=== PATIENT | female | born 1990 | race Caucasian/White ===

== ENCOUNTER 2022-04-17 09:07 | Outpatient (CLI) | payer OTHER, SELFPAY ==
--- NOTE | 2022-04-17 09:00 | ECG_ITS ---
Measurements Intervals [place] Rate: 91 P: 45 [place]: 142 QRS: 7 QRSD: 109 T: 29 QT: 372 QTc: 458 Interpretive Statements SINUS RHYTHM BORDERLINE T WAVE ABNORMALITY- ANTEROLATERAL LEADS BASELINE ARTIFACT- I, II, III, AVR, AVL, AVF BORDERLINE ECG Electronically Signed On 04-17-2022 9:38:40 CDT by Adriel Horan D.O.
== END 2022-04-17 09:08 | disposition home or self-care (01) ==
PROVIDERS: PCP Family Medicine; Visit Provider Obstetrics & Gynecology
DX: Z01.818 Encounter for other preprocedural examination (principal); I10 Essential (primary) hypertension; R94.31 Abnormal electrocardiogram [ECG] [EKG]
CPT/HCPCS: 93005

== ENCOUNTER 2022-04-18 01:12 | Day surgery (SDC) | payer OTHER, SELFPAY ==
[2022-04-16 14:19] VITALS: BMI 35.4
--- NOTE | 2022-04-16 14:27 | PC.NURSE ---
Report to the Outpatient Waiting Room, entrance under the green pavilion located off [facility], at time _1115_ on date _04/18/22_. OR Time: ___1315__. - You and your visitor will be asked a series of questions to screen for COVID 19 for your protection. - Only one visitor is allowed at this time. - The patient visitor is requested to leave or wait in car when not with patient. - A mask is required within the hospital. Patients may have clear liquids (water, carbonated beverages, clear teas, apple juice) until 3 hours prior to surgery with a maximum of 20 ounces. - No food from midnight until time of surgery - Infants may have breast milk until 4 hours before surgery, formula 6 hours prior to surgery. - Children will be allowed to drink immediately following surgery. If applicable, please bring a bottle or sippy cup to assist with drinking. Juice, water, soda, and popsicles are readily available. For infants on formula, please bring formula the day of surgery. Pacifiers are allowed. Take the following medications with a SIP of water the morning of surgery: __METOPROLOL Medications to discontinue per physician NONE Date to take last dose Please no make-up, nail turkish, hairspray, perfume, deodorant, or body powder the day of surgery. No jewelry (including any body piercings) or valuables the day of surgery, leave them at home. Please take a shower or bath the night before, or the morning of, surgery with an antibacterial soap. Wear comfortable, loose fitting clothing. Children are encouraged to wear pajamas. - Jewelry must be removed prior to entering the operating room. Rings and piercings that are not removed may be cut off. - The hospital will not accept responsibility for valuables. - Please leave all valuables, including medications, at home the day of surgery. If you are going home after surgery, a licensed warehouse driver must drive you home. - NO public transportation without another adult. - We recommend that an adult stay with you for 24 hours following discharge. - We also recommend that you do not drive, make important decision, drink alcoholic beverages, or take any drugs that were not prescribed by your health care provider for at least 24 hours after your discharge time. For Pediatric surgeries, we recommend two adults accompany the child home (only one inside the building at this time). Follow any additional instructions given to you from your surgeon. If you or anyone in your household have experienced Covid symptoms in the past week, please notify your surgeon or the nurse liaison at the phone number below for possible testing. Telephone instructions given to _PATIENT__and asked if any additional questions and then verbalized understanding. Patient advised to call surgeon office or pre surgery nurse liaison [phone] if any additional questions.
--- NOTE | 2022-04-17 10:50 | WPDANESEPPF ---
Anes - Initial Pre Proc Eval Procedure: Operation Date: 04/18/22 13:15 Proposed Procedures p Laparoscopic Bilateral Tubal Sterilization with Cautery - Jose Chase MD s Hysteroscopy Dilation and Curettage Mariana Endometrial Ablation - Jose Chase MD Date/Time: 04/17/22 10:50 Surgeon: Jose Chase MD Pre Op Diagnosis: desired sterilization Patient Data Age: 31 Gender: F Height: 1.55 m Weight: 85 kg Allergies Allergy/AdvReac Type Severity Reaction Status Date / Time magnesium sulfate Allergy Severe Difficulty Verified 04/16/22 14:23 Swallowing Home Medications Medication Instructions Recorded Confirmed Type metoprolol succinate 25 mg 12.5 mg PO DAILY 01/14/22 04/16/22 History tablet,extended release 24 hr phentermine 15 mg capsule 15 mg PO DAILY 01/14/22 04/16/22 History etonogestrel 68 mg subdermal 1 implant subdermal ONCE 02/18/22 04/16/22 History implant (Nexplanon) Patient hx anesthesia problems: none Family hx anesthesia problems: none Results Review: All pre-operative results and documents have been reviewed as part of the pre-operative evaluation. 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 [place] for 2-4 Surgical History Surgical History (Updated 02/18/22 @ 15:39 by HARESH Collins) H/O LEEP (02/16/13) SURENDRA III History of colposcopy with cervical biopsy 01/15/13 SURENDRA I 11/11/13 SURENDRA I History of dilation and curettage (05/01/15) menorrhagia History of eye surgery (01/29/21) History of hysteroscopy (10/14/12) MIRENA IUD REMOVAL Hx of breast reduction, elective (11/12/21) Family History Family History Other Diabetes mellitus Heart disease Social History Social History (Updated 02/18/22 @ 15:39 by HARESH Collins) Smoking status: Never smoker Alcohol intake: never Substance use: never Substance use type: does not use Living arrangements: with family Additional living arrangements comments: 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 Gender identity (if verbalized by the patient): Female Sexual Orientation (if Verbalized by the Patient): Straight or Heterosexual Anes - Eval Final PreProcedure Day of Procedure 04/17/22 10:50 Patient weight: obese Heart: regular rate and rhythm Lungs: clear to auscultation and normal air movement Airway: Mallampati scale class II Neurological: alert and oriented Last oral intake: >/= 8 hours ASA classification: II Emergent: no Anesthetic plan: proceed Anesthesia type and monitoring: general ETT Results Review: All pre-operative results and documents have been reviewed as part of the pre-operative evaluation. Informed Consent: The patient's anesthetic plan and its attendant risks and benefits were discussed with the patient/family/POA. Questions were solicited and answers provided to the satisfaction of the patient/family/POA.
[2022-04-18] VITALS (9 sets, daily range): BP systolic 111–129; BP diastolic 79–90; PULSE 58–88; RESP 12–20; TEMP 36.5–36.6; O2SAT 97–100
[2022-04-18] MEDS: LACTATED RINGERS 1,000 ML 30 ML IV CONT ×2 (12:10→14:53)
[2022-04-18] MEDS: ACETAMINOPHEN 500 MG TABLET 1000 MG PO (12:10)
[2022-04-18] MEDS: KETOROLAC 15 MG/ML VIAL (*BKC) IV PUSH (12:11)
--- NOTE | 2022-04-18 12:49 | PM.IMHP ---
H&P: HPI History of Present Illness Date/Time: 04/18/22 12:49 32-year-old female 6 para 1 3 2 4 presents for definitive treatment heavy vaginal bleeding. Cycles are irregular with Nexplanon in place and now heavy with clots cramping lasting 5-7 days. She has been on control pills which did not help the amount of bleeding that she was having and therefore presents today for endometrial ablation. 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 Surgical History Surgical History H/O LEEP (02/16/13) SURENDRA III History of colposcopy with cervical biopsy 01/15/13 SURENDRA I 11/11/13 SURENDRA I History of dilation and curettage (05/01/15) menorrhagia History of eye surgery (01/29/21) History of hysteroscopy (10/14/12) MIRENA IUD REMOVAL Hx of breast reduction, elective (11/12/21) Family History Family History Other Diabetes mellitus Heart disease Social History Social History Smoking status: Never smoker Alcohol intake: never Substance use: never Substance use type: does not use Living arrangements: with family Additional living arrangements comments: 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 Gender identity (if verbalized by the patient): Female Sexual Orientation (if Verbalized by the Patient): Straight or Heterosexual Meds Home Medications and Allergies Home Medications Medication Instructions Recorded Confirmed Type metoprolol succinate 25 mg 12.5 mg PO DAILY 01/14/22 04/18/22 History tablet,extended release 24 hr phentermine 15 mg capsule 15 mg PO DAILY 01/14/22 04/16/22 History etonogestrel 68 mg subdermal 1 implant subdermal ONCE 02/18/22 04/16/22 History implant (Nexplanon) Allergies Allergy/AdvReac Type Severity Reaction Status Date / Time magnesium sulfate Allergy Severe Difficulty Verified 04/18/22 12:22 Swallowing Vital Signs Vital Signs - 24 hr 04/18/22 12:06 Temperature 97.7 F Pulse Rate 88 Respiratory Rate 14 Blood Pressure 124/79 Pulse Oximetry 100 Oxygen Delivery Room Air Exam Const: General: cooperative, healthy appearing and comfortable Resp: Effort & Inspection: normal respiratory effort Auscultation: clear to auscultation bilaterally Cardio: Rate: regular rate Rhythm: regular rhythm GI: Inspection: normal to inspection Auscultation: normal bowel sounds : External Female Exam: normal external appearance Speculum Exam - Vagina: normal appearance of the vagina Speculum Exam - Cervix: normal appearance of the cervix Bimanual exam- vagina & uterus: normal bimanual exam Bimanual Exam- Adnexa, other: normal adnexae Assessment and Plan Assessment and plan (1) Menometrorrhagia: Code(s): N92.1 - Excessive and frequent menstruation with irregular cycle Status: Acute Assessment and Plan: Hysteroscopy D&C endometrial ablation (2) Encounter for female sterilization procedure: Code(s): Z30.2 - Encounter for sterilization Status: Acute Assessment and Plan: 67 laparoscopic bilateral tubal ligation via electrocautery
--- NOTE | 2022-04-18 12:52 | WPDHPUPDATE1 ---
History and Physical Update Update Date/Time: 04/18/22 12:52 History and Physical has been reviewed, including an updated exam of the patient. There are NO changes in the patient's condition. Risks, benefits, and alternatives have been discussed and questions answered. Patient agrees to proceed with procedure.
[2022-04-18] MEDS: ceFAZolin 2 GM/D5W 50 ML 2 GM/50 ML BAG IVPB (13:18)
--- NOTE | 2022-04-18 14:03 | P.OP_ITS ---
Procedure Note - Detailed Date of Procedure 04/18/22 Pre-op Diagnosis 1. Menometrorrhagia 2. desired sterilization Post-op Diagnosis Same Procedure Performed 1. Hysteroscopy with uterine curettings 2. Endometrial ablation 3. Laparoscopic bilateral tubal ligation via electrocautery Surgeon Jose Chase MD Anesthesia General Findings 1. Hysteroscopic exam revealed no abnormalities 2. Laparoscopic exam revealed normal tubes no ovaries with slightly enlarged globular uterus. Description of Procedure Patient prepped and draped in usual manner for this procedure. Cervical instruments were placed for uterine mobility for the laparoscopic portion of th is case. Periumbilical and suprapubic incisions were made and trocars were placed under direct visualization. Tubes were grasped bipolar in [address] on either 2 and dissected. Care was taken to not come in contact with the cautery with any other tissue then the fallopian tubes. No other problems were encountered at this point laparoscopic portion of procedure was considered terminate gas was allowed to escape and incisions approximated using 4-0 Monocryl. Hysteroscopic exam was then performed with uterine curettings removed. Mariana instrument was placed the instrument was activated and cavity assessment was performed. Once the cycle was complete the hysteroscopic exam revealed good destruction throughout the entirety of the uterine cavity. At this point procedure was considered terminated and patient was sent to recovery room in stable condition. Estimated Blood Loss 50 Drains No Packing No Pathology Yes Complications No immediate complications Condition Stable Disposition PACU [facility] Billing Surgery - Charge Forward: Surgery Billing
[2022-04-18] MEDS: fentaNYL CITRATE INJ (*CRX) 100 MCG/2 ML VIAL 25 MCG IV PUSH ×2 (14:45→15:18)
--- NOTE | 2022-04-18 14:48 | SUR.PHASEI ---
Simple mask removed at 1445.
[2022-04-18] MEDS: oxyCODONE HCL (*CRX) 5 MG TAB IR PO (15:25)
[2022-04-18] MEDS: IBUPROFEN 400 MG TABLET 800 MG PO (15:35)
== END 2022-04-18 16:18 | disposition home or self-care (01) ==
PROVIDERS: PCP Family Medicine; Visit Provider Obstetrics & Gynecology
PROC: (CPT 58671; principal; 2022-04-18 13:15)
PROC: 0U5B8ZZ Destruction of Endometrium, Via Natural or Artificial Opening Endoscopic (ICD-10-PCS; CPT 58563; 2022-04-18 13:15)
DX: N92.1 Excessive and frequent menstruation with irregular cycle (principal); Z30.2 Encounter for sterilization; B00.9 Herpesviral infection, unspecified; E66.9 Obesity, unspecified; Z68.33 Body mass index [BMI] 33.0-33.9, adult; Z85.41 Personal history of malignant neoplasm of cervix uteri
CPT/HCPCS: 58563; 58670; 88305; A9270; J0690; J1100; J1885; J2250; J2405; J2704; J2710; J3010; J7120

== ENCOUNTER 2024-06-15 09:38 | Outpatient (CLI) | payer OTHER, SELFPAY ==
[2024-06-15 09:52] LABS: Hematocrit 42.4 % (37.0-47.0); Hemoglobin 14.2 g/dL (12.0-15.0); Mean Corpuscular HGB Conc 33.5 g/dl (32-36); Mean Corpuscular Hemoglobin 30.7 pg (26-34); Mean Corpuscular Volume 91.8 fl (80-100); Platelet Count Result 276 k/mm3 (150-375); Red Blood Count 4.62 M/mm3 (4.2-5.4); Red Cell Distribution Width 12.1 % (11.5-14.5)
== END 2024-06-15 09:39 | disposition home or self-care (01) ==
LOC: ANHLAB 09:40
PROVIDERS: PCP Internal Medicine; Referring Provider Obstetrics & Gynecology; Visit Provider Anesthesiology
DX: N92.1 Excessive and frequent menstruation with irregular cycle (principal); Z01.818 Encounter for other preprocedural examination
CPT/HCPCS: 36415; 85027; 86850; 86900; 86901

== ENCOUNTER 2024-06-16 02:42 | Day surgery (SDC) | payer OTHER, SELFPAY ==
--- NOTE | 2024-06-09 16:35 | PC.NURSE ---
Report to the Outpatient Waiting Room, entrance under the green pavilion located off [facility], at time 0600 on date 06/16/24. Planned Procedure Time: 0730.? Time changes happen often and if your time is changed the preop area will call you the afternoon before. - You and your visitor will be asked to self-screen and do not enter if you have any COVID symptoms. Please call surgeon if you need to reschedule. - A mask is optional within the hospital at this time. Patients may have clear liquids (water, carbonated beverages, clear teas, apple juice) until 3 hours prior to surgery with a maximum of 20 ounces.0430 - No food from midnight until time of surgery and no smoking - Infants may have breast milk until 4 hours before surgery, formula 6 hours prior to surgery. - Children will be allowed to drink immediately following surgery.? If applicable, please bring a bottle or sippy cup to assist with drinking. Juice, water, soda, and popsicles are readily available.? For infants on formula, please bring formula the day of surgery.? Pacifiers are allowed. Take only the following medications with a SIP of water on the morning of surgery: Sumatriptan DO NOT STOP ANY OF YOUR OTHER PRESCRIPTION MEDICATIONS PRIOR TO SURGERY EXCEPT THE FOLLOWING Medications to discontinue per physician Multivitamins & Supplements Date to take last dose 06/13/24 Please no make-up, nail bahamian, hairspray, perfume, deodorant, or body powder the day of surgery.? No jewelry (including any body piercings) or valuables the day of surgery, leave them at home.? Please take a shower or bath the night before, or the morning of, surgery with an antibacterial soap.? Wear comfortable, loose fitting clothing.? Children are encouraged to wear pajamas. - Jewelry must be removed prior to entering the operating room.? Rings and piercings that are not removed may be cut off. - The hospital will not accept responsibility for valuables.? - Please leave all valuables, including medications, at home the day of surgery. If you are going home after surgery, a licensed seasonal delivery driver must drive you home.? - NO public transportation without another adult if you receive anesthesia. - We recommend that an adult stay with you for 24 hours following discharge. - We also recommend that you do not drive, make important decision, drink alcoholic beverages, or take any drugs that were not prescribed by your health care provider for at least 24 hours after your discharge time. For Pediatric surgeries, we recommend two adults accompany the child home. Follow any additional instructions given to you from your surgeon. Telephone instructions given to Patient- Hallie Bass and asked if any additional questions and then verbalized understanding. Patient advised to call surgeon office or pre surgery nurse liaison [phone] if any additional questions.
[2024-06-09 17:36] VITALS: BMI 21.2
[2024-06-16] VITALS (8 sets, daily range): BP systolic 93–116; BP diastolic 54–83; PULSE 65–115; RESP 10–20; TEMP 36.3–36.9; O2SAT 100
--- NOTE | 2024-06-16 07:11 | WPDHPUPDATE1 ---
History and Physical Update Update Date/Time: 06/16/24 07:11 History and Physical has been reviewed, including an updated exam of the patient. There are NO changes in the patient's condition. Risks, benefits, and alternatives have been discussed and questions answered. Patient agrees to proceed with procedure.
--- NOTE | 2024-06-16 07:21 | WPDANESEPPF ---
Anes - Initial Pre Proc Eval Procedure: Operation Date: 06/16/24 07:30 Proposed Procedures p Robotic Assisted Total Laparoscopic Hysterectomy - Jose Chase MD Date/Time: 06/16/24 07:21 Surgeon: Jose Chase MD Pre Op Diagnosis: menorrhagia Patient Data Age: 34 Gender: F Height: 1.54 m Weight: 50 kg Allergies Allergy/AdvReac Type Severity Reaction Status Date / Time magnesium sulfate Allergy Severe Difficulty Verified 06/15/24 08:55 Swallowing Patient hx anesthesia problems: none Family hx anesthesia problems: none Results Review: All pre-operative results and documents have been reviewed as part of the pre-operative evaluation. 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 Surgical History Surgical History H/O LEEP (02/16/13) SURENDRA III History of colposcopy with cervical biopsy 01/15/13 SURENDRA I 11/11/13 SURENDRA I History of dilation and curettage (05/01/15) menorrhagia History of eye surgery (01/29/21) History of hysteroscopy (10/14/12) MIRENA IUD REMOVAL History of hysteroscopy (04/18/22) hscope D&C/ endometrial Ablation / LTL Hx of breast reduction, elective (11/12/21) S/P gastric sleeve procedure (~05/12/23) Family History Family History Father Diabetes mellitus Heart disease Social History Social History Smoking status: Never smoker Second hand tobacco smoke exposure: No Alcohol intake: never Substance use: never Substance use type: does not use Do You Feel Safe in your Home?: Yes Lack of Transportation: No Lack of Food: Never True Current Housing: I Have Housing Concerned About Future Housing: No Difficulty Paying Gas/Electric Bills: No Difficulty Paying for Meds: No Currently Unemployed: No Education: High School Diploma/GED Difficulty w/ Childcare or Family Care: Decline to Answer Living arrangements: alone Additional living arrangements comments: Occupation/Education: occupation 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 Gender identity (if verbalized by the patient): Female Sexual Orientation (if Verbalized by the Patient): Straight or Heterosexual Spiritual care concerns: No Anes - Eval Final PreProcedure Day of Procedure 06/16/24 07:21 Patient weight: normal Heart: regular rate and rhythm Lungs: clear to auscultation Airway: Mallampati scale class II Neurological: alert and oriented Last oral intake: >/= 8 hours ASA classification: II Emergent: no Anesthetic plan: proceed Anesthesia type and monitoring: general ETT and standard monitoring Results Review: All pre-operative results and documents have been reviewed as part of the pre-operative evaluation. Informed Consent: The patient's anesthetic plan and its attendant risks and benefits were discussed with the patient/family/POA. Questions were solicited and answers provided to the satisfaction of the patient/family/POA.
[2024-06-16] MEDS: KETOROLAC 15 MG/ML VIAL (*BKC) IV PUSH (07:30)
[2024-06-16] MEDS: ACETAMINOPHEN 500 MG TABLET 1000 MG PO (07:30)
[2024-06-16] MEDS: LACTATED RINGERS 1,000 ML 30 ML IV CONT ×2 (07:30→09:04)
[2024-06-16] MEDS: ceFAZolin 2 GM/D5W 50 ML 2 GM/50 ML BAG IVPB (07:33)
[2024-06-16 07:41] LABS: BEDSIDEPREGUCG Negative
--- NOTE | 2024-06-16 09:15 | W.PM.PROC2 ---
Procedure Note - Detailed Date of Procedure 06/16/24 Pre-op Diagnosis 1. Uterine prolapse 2. Irregular vaginal bleeding 3. Post endometrial ablation syndrome 4. Dyspareunia Post-op Diagnosis Same Procedure Performed Robotic assisted total laparoscopic hysterectomy with bilateral salpingectomy (partial) Surgeon Jose Chase MD Anesthesia General Findings Mildly enlarged globular uterus. Distal segment of tubes were present bilateral. Description of Procedure Patient was prepped and draped usual manner for this procedure. Cervical instruments were placed for uterine mobility throughout the case. Abdominal trocar sites were marked and placed under direct visualization. Robotic system was attached to these trocars. Surgeon moved to the console to perform the rest of the procedure. Enlarged globular uterus was noted, and distal segments of tubes were present. These were removed without difficulty. Utero-ovarian ligaments were cauterized and cut round ligament was cauterized and cut and bladder flap was developed without difficulty. Posterior leaf of the broad ligament was then incised to skeletonize the uterine vessels. These vessels then cauterized and cut without difficulty. Posterior colpotomy incision was made and this was carried circumferentially to separate the cervix from the vagina. Once this was performed the uterus was delivered into the vagina. There was no significant bleeding and the vaginal cuff was closed using V lock suture from the right angle to the midline and from left angle midline. Irrigation was undertaken and evaluation for bleeding was undertaken and there was none. Will was placed over the vaginal incision. Gas was allowed to escape, trocars removed, incisions approximated using 4-0 Monocryl. Patient was then sent to recovery room in stable condition. Estimated Blood Loss 100 Drains No Packing No Pathology Yes Complications No immediate complications Condition Stable Disposition PACU [facility] Billing Surgery - Charge Forward: Surgery Billing
[2024-06-16] MEDS: fentaNYL CITRATE INJ (*CRX) 100 MCG/2 ML VIAL 25 MCG IV PUSH ×2 (09:28→09:37)
[2024-06-16] MEDS: SIMETHICONE 80 MG TAB.CHEW PO (10:51)
[2024-06-16] MEDS: DEXTROSE 5%/0.45% SOD CHL 1,000 ML 125 ML IV CONT (10:52)
[2024-06-16] MEDS: IBUPROFEN 600 MG TABLET PO (12:43)
[2024-06-16] MEDS: HYDROcodone/acetaminophen (*CRX) 10-325 MG TABLET 1 TAB PO ×2 (12:43→15:37)
[2024-06-16] MEDS: KETOROLAC 30 MG/ML VIAL (*BKC) IV PUSH (18:51)
[2024-06-16] MEDS: HYDROcodone/acetaminophen (*CRX) 5-325 MG TABLET 1 TAB PO (18:51)
[2024-06-17 04:00] VITALS: BP 94/62; PULSE 64; RESP 20; TEMP 36.8; O2SAT 95
[2024-06-17 04:38] LABS: Basophils Percent Auto 0.2 % (0.2-1.2); Eosinophils Absolute Auto 0.1 K/mm3 (0-0.3); Eosinophils Percent Auto 1.1 % (0-4.4); Hematocrit 36.3 % (37.0-47.0); Immature Granulocyte Absolute 0.02 K/mm3 (0.00-0.031); Immature Granulocyte Percent A 0.2 % (0-0.5); Lymphocytes Absolute Auto 2.56 K/mm3 (0.9-3.2); Lymphocytes Percent Auto 30.8 % (18.3-44.2); Mean Corpuscular HGB Conc 33.1 g/dl (32-36); Mean Corpuscular Hemoglobin 30.4 pg (26-34); Mean Corpuscular Volume 91.9 fl (80-100); Mean Platelet Volume 8.9 fl (7.4-10.4); Monocytes Absolute Auto 0.5 K/mm3 (0.1-0.6); Monocytes Percent Auto 5.9 % (2.6-8.5); Neutrophils Absolute Auto 5.1 K/mm3 (1.3-6.7); Neutrophils Percent Auto 61.8 % (45.5-73.1); Platelet Count Result 248 k/mm3 (150-375); Red Blood Count 3.95 M/mm3 (4.2-5.4); White Blood Count 8.3 K/mm3 (4.5-10.0)
[2024-06-17] MEDS: HYDROcodone/acetaminophen (*CRX) 10-325 MG TABLET 1 TAB PO (08:13)
[2024-06-17] MEDS: SIMETHICONE 80 MG TAB.CHEW PO (08:14)
[2024-06-17 08:25] VITALS: BP 91/54; PULSE 79; RESP 16; TEMP 37.3; O2SAT 99
--- NOTE | 2024-06-17 10:37 | P.PNAN_ITS ---
Anes - Prog Note Post-Op Date/Time: 06/17/24 10:37 Cardiovascular status: normal Respiratory status: normal Airway patency: baseline Mental status: baseline Post-Op hydration status: normal Vital Signs: Last Vital Signs Temp 37.3 C 06/17/24 08:25 Pulse 79 06/17/24 08:25 Resp 16 06/17/24 08:25 BP 91/54 L 06/17/24 08:25 Pulse Ox 99 06/17/24 08:25 O2 Del Method Room Air 06/16/24 19:27 O2 Flow Rate 8 06/16/24 09:15 Pain Score (VAS): 12/19 I/O: Intake & Output 06/16/24 06/17/24 06/17/24 23:59 07:59 15:59 Intake Total 240 Balance 240 Laboratory Tests 06/17/24 04:14 06/17/24 04:14 WBC 8.3 RBC 3.95 L Hgb 12.0 Hct 36.3 L MCV 91.9 MCH 30.4 MCHC 33.1 RDW 12.0 Plt Count 248 MPV 8.9 Immature Gran % (Auto) 0.2 Neut % (Auto) 61.8 Lymph % (Auto) 30.8 [place] % (Auto) 5.9 Eos % (Auto) 1.1 Baso % (Auto) 0.2 Lymph # (Auto) 2.56 [place] # (Auto) 0.5 Eos # (Auto) 0.1 Baso # (Auto) 0.0 Abs Immat Gran (auto) 0.02 Absolute Neuts (auto) 5.1 Absolute Nucleated RBC 0.000 Nucleated RBC % 0.0 Post-procedural complaints: none Patient Feedback: Patient satisfied with anesthetic care.
== END 2024-06-17 11:10 | disposition home or self-care (01) ==
LOC: ANHSURGERY 06:28 → ANHOB2 12:51
PROVIDERS: PCP Physician Assistant Medical; Visit Provider Obstetrics & Gynecology
PROC: (CPT 58571; principal; 2024-06-16 07:30)
DX: N81.4 Uterovaginal prolapse, unspecified (principal); N72 Inflammatory disease of cervix uteri; N83.8 Other noninflammatory disorders of ovary, fallopian tube and broad ligament; N93.9 Abnormal uterine and vaginal bleeding, unspecified; N99.85 Post endometrial ablation syndrome; N94.10 Unspecified dyspareunia; Z98.84 Bariatric surgery status
CPT/HCPCS: 58571; S2900; 36415; 85025; 88307; 99199; A9270; J0690; J1100; J1170; J1885; J2250; J2405; J2704; J3010; J7030; J7120

== ENCOUNTER 2025-06-30 12:31 | Outpatient (CLI) | payer OTHER, SELFPAY ==
--- OUTSIDE RECORDS SUMMARY | 2025-06-30 12:36 | XMS_ITS | Clinical Summary ---
Author Organization [facility] [employer] Address [address] [place] [address] Care Team Providers Care Records Supervisor Name Role Phone Kyler Orr MD Primary Care Provider [phone] Source Comments [facility] [employer],non-owned Affiliates and Associated Physician Practices is amultiple site organization consisting of ambulatory clinics and hospital sitesin [place], [place], [place] and [place]. This disclosure is being madepursuant to the Care Everywhere program and may not contain all information available regarding this patient. Last updated 18.[facility] [employer] Allergies Active Allergy Reactions Criticality Noted Date Comments Magnesium Shortness of Breath High 09/11/2021 Medications * Be aware that medications may not be up to date on this document. Alwaysverify current medications with the patient. multivitamin daily tablet Take 1 (one) tablet by mouth daily with food Active folic acid (Folvite) 1 MG tablet TAKE 1 TABLET BY MOUTH EVERY DAY FOR 30 DAYS 4 Active SUMAtriptan (Imitrex) 50 MG tablet Take 1 (one) tablet by mouth once daily as needed 4 Active CALCIUM CITRATE 600 mg TABS tablet Take 600 (six hundred) mg by mouth 2 times daily Active cycloSPORINE (Restasis) 0.05 % ophthalmic suspension Instill 1 (one) drop into both eyes 2 times daily 5 Active vitamin D, ergocalciferol, (Drisdol) 1.25 MG (68543 UT) capsuleIndicati ons:Vitamin D Deficiency Take 1 (one) capsule by mouth every 7 days (once a week) Reasons: Vitamin D Deficiency 4 capsule 3 5 Active Active Problems Problem Noted Date Diagnosed Date Morbid obesity 06/08/2023 Skin infection 11/27/2021 Migraine 11/27/2021 S/P bilateral breast reduction 11/20/2021 Macromastia 11/06/2021 Essential hypertension 11/06/2021 Mild asthma without complication 11/06/2021 Depression 11/06/2021 Anxiety 11/06/2021 Chronic midline back pain 11/06/2021 Sequential screen 06/16/2014 Encounter for supervision of other normal pregna ncy 06/16/2014 Overview (08/19/2015): Recurrent loss, an tepartum condition or complication 06/16/2014 Encounters Date Type Department Care Team Description 06/29/2025 Orders Only [facility] Weight [facility] Services [address] [place] [address] Lissette Allen APRN-CNP Status post laparoscopic sleeve gastrectomy 05/01/2025 Results Follow-Up [facility] [address] [place] [address] Brenda Gamez MD 04/25/2025 9:00 AM CDT Office Visit [facility] [address] [place] [address] Lilli Matthews APRN-CNP Cox, Rachel, APRN-CNP Status post laparoscopic sleeve gastrectomy (Primary Dx); Vitamin D deficiency 04/25/2025 8:30 AM CDT Office Visit [facility] [address] [place] [address] Lilli Matthews APRN-CNP Status post laparoscopic sleeve gastrectomy (Primary Dx) 04/25/2025 8:00 AM CDT - 04/25/2025 11:59 PM CDT Hospital Encounter [facility] [address] [place] [address] Lucie Cleary, SUPERVISOR SCREEN PRINTING-Brenda Dill MD Discharge Disposition: Home or Self Care from Last 3 Months Immunizations Immunization Administration Dates Next Due Covfelicitas Hines primary monoval ent 12+ yr 0.3mL Purple cap 08/08/2021,07/18/2021 Family History Medical History Relation Name Comments Cancer - Other Father Diabetes Father Diabetes - Type 2 Father Hypertension Father Heart Failure Maternal Grandmother Heart Failure Mother Diabetes - Type 2 Paternal Grandmother Relation Name Status Comments Father Maternal Grandmother Mother Paternal Grandmother Social History Tobacco Use Types Packs/Day Years Used Date Smoking Tobacco: Never Smokeless Tobacco: Never Tobacco Cessation:Counseling Given: Not Answered Alcohol Use Standard Drinks/Week Comments Never 0 (1 standard drink = 0.6 oz pur e alcohol) AUDIT-C Answer Date Recorded Q1: How often do you have a drink containing alcohol? Never 06/08/2023 Q2: How many drinks containi ng alcohol do you have on a typical day when you are drinking? Patient does not drink Q3: How often do you have si x or more drinks on one occasion? Never 06/08/2023 Overall Financial Resource Strain (CARDIA) Answe r Date Recorded How hard is it for you to pa y for the very basics like food, housing, medical care, and heating? Not hard at all 06/08/2023 PHQ-2 Answer Date Recorded Patient Health Questionnaire-2 Score 0 04/25/2025 [facility] - Occupational Stress Questionnaire Answer Date Recorded Do you feel stress - tense, restless, nervous, or anxious, or unable to sleep at night because your mind is troubled all the time - these days? Not at all 06/08/2023 Hunger Vital Sign Answer Date Recorded Within the past 12 months, y ou worried that your food would run out before you got the money to buy more. Never true 06/08/20 23 Within the past 12 months, t he food you bought just didn't last and you didn't have money to get more. Never true 06/08/2023 PRAPARE - Transportation Answer Date Re corded In the past 12 months, has l ack of transportation kept you from medical appointments or from getting medications? No 05/13 In the past 12 months, has l ack of transportation kept you from meetings, work, or from getting things needed for daily living? No 06/08/2023 Housing Stability Vital Sign Answer Augustine e Recorded In the last 12 months, was t here a time when you were not able to pay the mortgage or rent on time? No 06/08/2023 In the last 12 months, how many places have you lived? 1 06/08/2023 In the last 12 months, was t here a time when you did not have a steady place to sleep or slept in a custodial (including now)? 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 Gender Identity Not on file Sexual Orientation Not on file Last Filed Vital Signs Vital Sign Reading Time Taken Comments Blood Pressure 82/60 04/25/2025 8:46 AM CDT Pulse 85 04/25/2025 8:43 AM CDT Temperature 36.7 C (98.1 F) 04/25/2025 8:43 AM CDT Respiratory Rate 18 04/25/2025 8:43 AM CDT Oxygen Saturation 99% 04/25/2025 8:43 AM CDT Inhaled Oxygen Concentration - - Weight 48.8 kg (107 lb 8 oz) 04/25/2025 8:43 AM CDT Height 153.7 cm (5' 0.5) 04/25/2025 8:43 AM CDT Body Mass Index 20.65 04/25/2025 8:43 AM CDT Plan of Treatment Upcoming Encounters Date Type Department Care Team (Late st Contact Info) Description 06/13/2026 11:00 AM CDT Office Visit [facility] Weight Management Services [address] [place] [phone] Lilli Matthews, SUPERVISOR SCREEN PRINTING-WEIGHT YARDAGE CHECKER [address] [place], [place] [phone] 06/13/2026 11:30 AM CDT Clinical Support [facility] [address] [place] [phone] Health Maintenance Due Date Last Done Comments HIV SCREENING 2005 HEPATITIS C SCREENING 04/13/2008 DTAP/TDAP/TD VACCINES (1 - Tdap) 2009 HEPATITIS B VACCINE (1 of 3 - 19+ 3-dose series) 2009 PNEUMOCOCCAL VACCINE (1 of 2 - PCV) 2009 HPV VACCINE (1 - 3-dose SCDM series) 2017 COVID-19 VACCINE (4 - 2024-2 6 season) 2025 03/23/2022, 08/08/2021, 07/18/2021 INFLUENZA VACCINE (#1) 2025 ZOSTER VACCINE (1 of 2) 2040 DEPRESSION SCREENING Completed 04/25/2025, 12/11/2023 HIB VACCINE Aged Out No longer eligi ble based on patient's age to complete this topic MENINGOCOCCAL (Group B) VACCINE SHARED DECISION-MAKING Aged Out No longer eligible based on patient's age to complete this topic MENINGOCOCCAL GROUPS A/C/Y/W VACCINE Aged Out No longer eligible b ased on patient's age to complete this topic Medical Devices Implanted Type Area Kiln Cleaner Device Identifier Shelf Expiration Date Model / Serial / Lot Kit Tissue Clsr Duo Tssl 1 Prefl Syr - [id number] Implanted:Qty : 1 on 06/08/2023 by Brenda Gamez MD at [facility] N/A: Abdomen [employer] 03/11/2025 [id number] / [id number] / [id number] Procedures Procedure Name Priority Date/Time Associated Diagnosis Comments VITAMIN D 25-HYDROXY Routine 04/25/2025 8:06 AM CDT Vitamin D deficiency FOLATE Routine 04/25/2025 8:06 AM CDT Folate deficiency from Last 3 Months Results * (ABNORMAL) VITAMIN D 25-HYDROXY (04/25/2025 8:06 AM CDT) [facility] Vitamin D, 25 Hydroxy 28.2(L) 30 - 80 ng/mL 04/25/2025 9:14 AM CDT [facility] Blood BLOOD SPECIMEN / Unknown Lab Venipuncture / Unknown 04/25/2025 8:06 AM CDT 04/25/2025 8:32 AM CDT Narrative [facility] - 04/25/2025 9:14 AM CDT Reference Values: The recommendation for 25-Hydroxy Vitamin D clinical decision points are as follows: Deficient < 20.0 ng/mL Insufficient 20.0-29.9 ng/mL Sufficient 30.0-100.0 ng/mL Potential Toxicity >100 ng/mL Reference: The Endocrine Society Clinical Practice Guidelines. 2011 If the 25-Hydroxy Vitamin D results are inconsistent with clinical evidence, it is recommended that follow-up testing using a method such as LC-MS/MS be performed to confirm the result. Lucie Cleary [facility] - CHEMISTRY O RDERABLES Final Result Performing Organization Address City/[facility] Co de Phone Number [facility] [address] * FOLATE (04/25/2025 8:06 AM CDT) [facility] Folate >20.0 7.0 - 31.4 ng/mL 04/25/2025 10:09 AM CDT [facility] Blood BLOOD SPECIMEN / Unknown Lab Venipuncture / Unknown 04/25/2025 8:06 AM CDT 04/25/2025 8:33 AM CDT Lucie Cleary [facility] - CHEMISTRY O RDERABLES Final Result Performing Organization Address City/[facility] Co de Phone Number [facility] [address] from Last 3 Months Insurance [facility] Care Address: [address] [address] SELF PAY NO INSURANCE Member Subscriber Plan / Payer (Ef fective for All Dates) Name:Estrella Bass Member ID:Not on file Relation to Subscriber:Not on file Name:ESTRELLA BASS Subscriber ID:Not on file (Home) Address: [address] [place] [address] Payer ID:Not on file Group ID:Not on file Type:Self Pay Address: [place], [place] [facility] MEDICAID - [place] Advance Directives * Full Code (Latest Code Status on File) Date Activated Date Inactivated Comments 06/08/2023 10:42 AM 06/09/2023 3:38 PM Care Teams Records Supervisor Relationship Specialty Start Date End Date Kyler Orr MD [address] [place] [phone] PCP - General Internal Medicine 11/06/21
--- OUTSIDE RECORDS SUMMARY | 2025-06-30 12:36 | XMS_ITS | Clinical Summary ---
Author Organization [facility] Address [address] [place] [address] Care Team Providers Care Assistant Real Estate Manager Name Role Phone Kyler Orr MD Primary Care Provider [phone] Allergies Active Allergy Reactions Criticality Noted Date Comments Magnesium Sulfate (Bulk) Fatigue,Nausea & Vomiting,Shortness of breath High 02/11/2023 Medications cholecalciferol (VITAMIN D-3) 50,000 unit capsule TAKE 1 CAPSULE BY MOUTH EVERY WEEK DIRECTED 01/31/2023 Active cloNIDine (CATAPRES) 0.1 mg tablet 02/08/2023 Active DULoxetine 40 mg capsule,delayed release(DR/EC) Take 1 capsule by mouth every morning 01/07/2023 Active metoprolol XL (TOPROL-XL) 25 mg extended release tablet 02/08/2023 Acti ve naltrexone (DEPADE) 50 mg tablet Take 1 tablet (50 mg total) by mouth daily 01/09/2023 Active Active Problems Problem Noted Date Diagnosed Date Obstructive sleep apnea 04/29/2023 Hypersomnia 02/11/2023 Nonsmoker 02/11/2023 Psychophysiological insomnia 02/11/2023 Family history of sleep apnea 02/11/2023 BMI 37.0-37.9, adult 02/11/2023 Family History Medical History Relation Name Comments Cancer Father Diabetes Father Heart disease Mother Relation Name Status Comments Father Mother Social History Tobacco Use Types Packs/Day Years Used Date Smoking Tobacco: Never Passive Smoke Exposure: Never Smokeless Tobacco: Never Tobacco Cessation:Counseling Given: Not Answered AUDIT-C Answer Date Recorded Frequency of Alcohol Consumption Not on file 02/11/2023 Q2: How many drinks containi ng alcohol do you have on a typical day when you are drinking? Patient does not drink Frequency of Binge Drinking Not on file 12/2022 Personal Safety Answer Date Recorded Getting School Help Needed Not on file 12/12 Comments Unknown Sex and Gender Information Value Date Recorded Sex Assigned at Not on file Legal Sex Female 1:19 PM CDT Gender Identity Not on file Sexual Orientation Not on file Obstetrics History Last Filed Vital Signs Vital Sign Reading Time Taken Comments Blood Pressure 118/70 04/29/2023 10:08 AM CDT Pulse 79 04/29/2023 10:08 AM CDT Temperature 36.5 C (97.7 F) 04/29/2023 10:08 AM CDT Respiratory Rate 18 04/29/2023 10:08 AM CDT Oxygen Saturation 99% 04/29/2023 10:08 AM CDT Inhaled Oxygen Concentration - - Weight 87.1 kg (192 lb) 04/29/2023 10:08 AM CDT Height 152.4 cm (5') 04/29/2023 10:08 AM CDT Body Mass Index 37.5 04/29/2023 10:08 AM CDT Plan of Treatment Health Maintenance Due Date Last Done Comments Cervical Cancer Screening 1990 Depression Screening 1990 Hepatitis C Screening 1990 Varicella Vaccines (1 of 2 - 13+ 2-dose series) 2003 Hepatitis B Screening 2008 Regular Well Visit/Exam 18-64 2008 HPV Vaccines (1 - 3-dose SCD M series) 2017 Covid-19 Vaccine (4 - 2024-2 6 season) 2025 03/23/2022, 08/08/2021, 07/18/2021 Influenza Vaccine (#1) 2025 05/23/2024 DTaP/Tdap/Td Vaccine (4 - Td or Tdap) 09/27/2026 09/27/2016, 12/05/2014, 12/29/1994 Pneumococcal vaccine <65 Aged Out No longer eligible based on patient's age to complete this topic Insurance [facility] Care Teams Assistant Real Estate Manager Relationship Specialty Start Date End Date Kyler Orr MD [address] [place] [id number] PCP - General Internal Medicine 05/02/24
--- OUTSIDE RECORDS SUMMARY | 2025-06-30 12:36 | XMS_ITS | Encounter Summary ---
Author Organization [facility] Address [address] [place] [address] Care Team Providers Care Electronic Prepress Technician Name Role Phone Kyler Orr MD Primary Care Provider [phone] Encounter Details Date Type Department Care Team (Late st Contact Info) Description 06/29/2025 Orders Only [facility] [address] [place] [phone] Lissette Allen, BURLING AND JOINING SUPERVISOR-CPAS [address] [place] [address] Status post laparoscopic sleeve gastrectomy Social History Tobacco Use Types Packs/Day Years Used Date Smoking Tobacco: Never Smokeless Tobacco: Never Alcohol Use Standard Drinks/Week Comments Never 0 [...] Recorded Patient Health Questionnaire-2 Score 0 04/25/2025 [facility] - Occupational Stress Questionnaire Answer Date Recorded [...] place to sleep or slept in a alf (including now)? 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 Answer Date of Assessment Author No 06/09/2023 1:58 PM Calli Narvaez RN * Is person blind or have serious difficulty seeing? Answer Date of Assessment Author No 06/09/2023 1:58 PM Calli aNrvaez RN * Does person have serious difficulty walking/climbing stairs? Answer Date of Assessment Author No 06/09/2023 1:58 PM Calli Narvaez RN * Does person have difficulty dressing/bathing? Answer Date of Assessment Author No 06/09/2023 1:58 PM CDT Calli Yates RN * Does person have difficulty doing errands alone? Answer Date of Assessment Author No 06/09/2023 1:58 PM CDT Calli Yates RN documented as of this encounter Mental Status * Does person have difficulty concentrating/remembering/making decisions? Answer Entry Date Author No 06/09/2023 1:58 PM CDT Calli Yates RN documented in this encounter Plan of Treatment Upcoming Encounters Date Type Department Care Team (Late st Contact Info) Description 06/13/2026 11:00 AM CDT Office Visit [facility] [address] [place] [address] Lilli Matthews, BURLING AND JOINING SUPERVISOR-CPAS [address] [place], [place] [address] 06/13/2026 11:30 AM CDT Clinical Support [facility] [address] [place] [address] documented as of this encounter Visit Diagnoses Diagnosis Status post laparoscopic sleeve gastrectomy documented in this encounter Care Teams Electronic Prepress Technician Relationship Specialty Start Date End Date Kyler Orr MD [address] [place] [address] PCP - General Internal Medicine 11/06/21 documented as of this encounter
--- OUTSIDE RECORDS SUMMARY | 2025-06-30 12:36 | XMS_ITS | Clinical Summary ---
Author Organization [facility] Address [address] [place] [address] Care Team Providers Care Sales And Distribution Clerk Name Role Phone Unavailable Primary Care Provider Unavailabl e Social History Tobacco Use Types Packs/Day Years Used Date Smoking Tobacco: Never Assessed Comments Unknown Sex and Gender Information Value Date Recorded Sex Assigned at Not on file Legal Sex Female 1:06 PM CDT Gender Identity Not on file Sexual Orientation Not on file Plan of Treatment Health Maintenance Due Date Last Done Comments Cervical Cancer Screening Pa p Smear (Age 30 to 64) Every 3 Years 1990 Annual Physical 1993 Hepatitis C 2008 DTaP, Tdap and Td Vaccines ( 1 - Tdap) 2009 Hepatitis B Vaccines (1 of 3 - 19+ 3-dose series) 2009 HPV Vaccines (1 - 3-dose SCD M series) 2017 Cervical Cancer Screening Pa p with HPV Testing (Age 30 to 64) Every 5 Years 2020 Cervical Cancer Screening with HPV 2020 COVID-19 Vaccine (2023-2 5 season) 2025 Meningococcal B Vaccine Aged Out No l onger eligible based on patient's age to complete this topic Meningococcal Vaccine Aged Out No emil danielle eligible based on patient's age to complete this topic Pneumococcal Vaccine: Pediat rics (0 to 5 Years) and At-Risk Patients (6 to 49 Years) Aged Out No longer eligible b ased on patient's age to complete this topic RSV Immunizations Under 20 Months Aged Out No longer eligible based on patient's age to complete this topic Insurance [employer]
--- NOTE | 2025-07-03 10:23 | WPDNEUROLOGY ---
Neurology EEG Report General Information Date of Study: 06/30/25 TEST EEG DIAGNOSIS Disorientation CONDITION OF RECORDING awake, drowsiness and asleep. EEG NUMBER [id number] CLINICAL HISTORY 35 years old female experiencing seizure-like spells. Patient states that she is experiencing an aura of getting hot. She then gets dizzy, nauseous, develops headache and then blacks out. She stays I just do not feel myself and it lasts for 10 to 15 minutes. These happen 3 to 4 times a year. On occasion she was driving and she had a spell described above to where she had to cloth covered helmet puller, get out of her car, and sit in the grass. She then experienced her hands and fingers turning inward and legs got so staff could not move. She was also talking funny that is slurred words. These spells started 6 months after her gastric sleeve. EEG DESCRIPTION Diffuse low-voltage 15 to 21 hertz per 2nd beta activity seen admixed with multiple eye movement artifacts. Hyperventilation produced normal and symmetrical buildup of the background rhythm. Bilateral symmetrical sleep activity is noted with low-voltage beta activity and 6 to 7 hertz per 2nd theta activity developing into bilateral symmetrical sleep spindles. Non paroxysmal. Nonfocal. Nonlateralizing. Photic stimulation produced normal driving. IMPRESSION No significant abnormalities noted during wakefulness, drowsiness and sleep . clinical correlation recommended as a normal EEG does not rule out the possibility of seizures.
== END 2025-06-30 12:32 | disposition home or self-care (01) ==
LOC: ANHNEURO 12:33
PROVIDERS: PCP Physician Assistant Medical; Visit Provider Physician Assistant Medical
DX: R41.0 Disorientation, unspecified (principal)
CPT/HCPCS: 95816

== ENCOUNTER 2025-08-24 08:40 | Emergency (ER) | payer OTHER, SELFPAY ==
--- NOTE | ~2025-08-24 | CT_ITS ---
EXAMINATION: CT cervical spine wo con COMPARISON: None HISTORY: neck pain X 3 days, no acute injury TECHNIQUE: Axial images were obtained through the spine without IV contrast. Coronal, sagittal reconstruction images were obtained from the axial views. CT scan performed using dose optimization techniques including the following automated exposure control; adjustment of mA and/or kV; use of iterative reconstruction technique. Automatic exposure control was used to reduce radiation dose. Permanent radiation dose record is archived to PACS. FINDINGS: The vertebral heights are intact. No fracture or subluxation. The disc heights are intact. The soft tissues demonstrate bilateral thyroid nodules, outpatient ultrasound is recommended. Impression: No acute abnormality. Reviewed, dictated and finalized at location [facility] Impression: No acute abnormality.
--- OUTSIDE RECORDS SUMMARY | 2025-08-24 08:48 | XMS_ITS | Clinical Summary ---
Author Organization [facility] Address [address] [place], [place] [id number] Care Team Providers Care Manager Agency Name Role Phone Unavailable Primary Care Provider [...] Cancer Screening with HPV 2020 COVID-19 Vaccine (2024-2 6 season) 2025 Influenza Adult (#1) 2025 Hepatitis A Vaccines Aged Out No long er eligible based on patient's age to complete this topic Meningococcal B Vaccine Aged Out No l [...] patient's age to complete this topic Insurance [place] MEDICA[employer]
--- OUTSIDE RECORDS SUMMARY | 2025-08-24 08:48 | XMS_ITS | Clinical Summary ---
Author Organization [facility] Address [address] [place] [address] Care Team Providers Care Director Business Name Role Phone Kyler Orr MD Primary Care Provider [phone] Allergies Active Allergy Reactions Criticality Noted Date [...] patient's age to complete this topic Insurance [facility] Care Teams Director Business Relationship Specialty Start Date End Date Kyler Orr MD [address] [place] [id number] PCP - General Internal Medicine 05/02/24
[2025-08-24 08:58] VITALS: BP 114/63; PULSE 100; RESP 15; TEMP 36.7; O2SAT 98
--- NOTE | 2025-08-24 09:13 | ED.NECK ---
HPI - Neck Pain/Injury General Chief Complaint: Neck Pain/Injury Stated Complaint: neck pain Time Seen by Provider: 08/24/25 09:05 Source: patient Mode of arrival: ambulatory Limitations: no limitations History of Present Illness HPI Narrative: This is a 35-year-old female that presents to the emergency department for neck pain. No recent injury or trauma. Reports pain is worse with movement. She has been taking Tylenol and ibuprofen with little relief. Denies fevers, numbness, weakness. Related Data Home Medications ?Medication ?Instructions ?Recorded ?Confirmed ?Last Taken ?Type arginine 1,000 mg-B12 16.6 tablet PO 07/04/24 08/03/24 Unknown History mcg-folic acid 66.6 mcg-B6 3.3 mg tablet Allergies Allergy/AdvReac Type Severity Reaction Status Date / Time magnesium sulfate Allergy Severe Difficulty Verified 08/03/24 09:01 Swallowing Review of Systems Review of Systems: All systems reviewed & are unremarkable except as noted in HPI and below PMFSH Past Medical History Medical History Anxiety Chlamydia (~2011) Depression Encounter for IUD insertion 09/27/08 Mirena insertion 10/22/10 Mirena insertion Encounter for IUD removal 05/28/09 Mirena removal 10/14/12 Hscope Mirena removal Insertion of Nexplanon (02/26/18) Migraines Nexplanon removal (06/04/22) Nexplanon removal PCR DNA positive for HSV1 delivery used [place] for 2-4 Surgical History Surgical History H/O LEEP (02/16/13) SURENDRA III History of colposcopy with cervical biopsy 01/15/13 SURENDRA I 11/11/13 SURENDRA I History of dilation and curettage (05/01/15) menorrhagia History of eye surgery (01/29/21) History of hysteroscopy (10/14/12) MIRENA IUD REMOVAL History of hysteroscopy (04/18/22) hscope D&C/ endometrial Ablation / LTL History of robot-assisted laparoscopic hysterectomy (06/16/24) Robotic assisted total laparoscopic hysterectomy with bilateral salpingectomy (partial) Hx of breast reduction, elective (11/12/21) S/P gastric sleeve procedure (~05/12/23) Family History Family History Father Diabetes mellitus Heart disease Social History Social History Smoking status: Never smoker Second hand tobacco smoke exposure: No Alcohol intake: never Substance use: never Substance use type: does not use Do You Feel Safe in your Home?: Yes Lack of Transportation: No Lack of Food: Never True Current Housing: I Have Housing Concerned About Future Housing: No Difficulty Paying Gas/Electric Bills: No Difficulty Paying for Meds: No Currently Unemployed: No Education: High School Diploma/GED Difficulty w/ Childcare or Family Care: Decline to Answer Living arrangements: alone Additional living arrangements comments: Occupation/Education: 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 HEAD: Normocephalic, atraumatic. EYES: PERRLA and EOMI. ENT: Nares clear, no rhinorrhea or epistaxis. Mucous membranes moist. Oropharynx without tonsillar hypertrophy exudate or other lesions. Bilateral TMs pearly lovelace non-bulging NECK: Supple. No adenopathy or masses. CHEST: Clear to auscultation. No respiratory distress. No wheezes rales or rhonchi HEART: Regular rate and rhythm. No murmur heard. Normal peripheral pulses. EXTREMITIES: Normal range of motion. No edema. Strength equal in bilateral upper extremities (5/5) SKIN: Warm, dry, no rash. NEURO: No focal deficits. Alert and oriented x3. CN II-XII grossly intact PSYCH: Normal mood and affect Course Vital Signs Vital signs: Vital Signs Temperature 98.1 F 08/24/25 08:58 Pulse Rate 100 08/24/25 08:58 Respiratory Rate 15 08/24/25 08:58 Blood Pressure 114/63 08/24/25 08:58 Pulse Oximetry 98 08/24/25 08:58 Oxygen Delivery Room Air 08/24/25 08:58 Temperature 98.1 F 08/24/25 08:58 Pulse Rate 100 08/24/25 08:58 Respiratory Rate 15 08/24/25 08:58 Blood Pressure 114/63 08/24/25 08:58 Pulse Oximetry 98 08/24/25 08:58 Oxygen Delivery Room Air 08/24/25 08:58 MDM - Neck Pain/Injury MDM Narrative Medical decision making narrative: Patient presents to the emergency department for neck pain. No recent injury trauma. She is neurovascularly intact. CT cervical spine without acute findings. Patient with improvement with pain medications in the ER. Updated on her workup and agrees with plan of care. She is to follow-up with her primary provider. She was given warnings to return to the ER Differential Diagnosis Differential diagnosis: Likely disc disorder of cervical region, cervical radiculopathy, torticollis, cervical spondylosis and strain of neck muscle Imaging Data Radiologist's impression: ITS Impressions Cervical Spine CT 08/24/25 09:27 Impression: No acute abnormality. Critical Care Time Critical Care Time Critical Care Time: No Discharge Plan Discharge Clinical Impression: Spasm of cervical paraspinous muscle, Thyroid nodule Patient Disposition: Home Condition: Stable Instructions: Thyroid Nodules (ED), Muscle Spasm (ED) Additional Instructions: Return to the ER if you experience fever, severe headache, weakness, numbness, or any other symptoms that are concerning to you Rest, use heat, take anti-inflammatories (Aleve, Ibuprofen, Naproxen, etc) or Tylenol as needed for pain as well as prescribed pain medication as needed Follow up with your primary care doctor The radiologist is seeing some nodules on your thyroid and recommending an ultrasound of your thyroid, have your PCP arrange this Patient Language: Syrian Prescriptions: New hydrocodone-acetaminophen 5-325 mg tablet 1 tablet PO Q6H PRN (Reason: pain) Qty: 14 0RF No Action vxxgeude-G30-czard acid-B6 1,000 mg-16.6 mcg-66.6 mcg tablet PO Follow-up/Referrals: Sundar,DONNIE Lenz [Primary Care Provider, Unknown]
[2025-08-24] MEDS: KETOROLAC 30 MG/ML VIAL (*BKC) IM (09:36)
[2025-08-24] MEDS: diazePAM INJ (*CRX) 10 MG/2 ML SYRINGE 5 MG IM (09:37)
--- OUTSIDE RECORDS SUMMARY | 2025-08-24 10:41 | XMS_ITS | Clinical Summary ---
Author Organization [facility] Address [address] [place] [address] Care Team Providers Care Mask Inspector Name Role Phone Kyler Orr MD Primary Care Provider [phone] Source Comments [facility],non-owned Affiliates and Associated Physician Practices is amultiple site organization consisting of ambulatory clinics and hospital sitesin [place], [place], [place] and [place]. This disclosure is being madepursuant to the Care Everywhere program and may not contain all information available regarding this patient. Last updated 18.[facility] Allergies Active Allergy Reactions Criticality Noted Date [...] Active vitamin D, ergocalciferol, (Drisdol) 1.25 MG (28412 UT) capsuleIndicati ons:Vitamin D Deficiency Take 1 [...] Department Care Team Description 06/29/2025 Orders Only [facility] [address] [place] [address] Lissette Allen, IT SYSTEMS MANAGER-ENGINEERING INSPECTION ASSISTANT Status post laparoscopic sleeve gastrectomy from Last 3 Months Immunizations Immunization Administration Dates Next Due Covid [facility] primary monoval ent 12+ yr 0.3mL Purple [...] Recorded Patient Health Questionnaire-2 Score 0 04/25/2025 [facility] Occupat ional Health - Occupational Stress [...] place to sleep or slept in a fci (including now)? 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 Gender Identity Not on file Sexual Orientation [...] Description 06/13/2026 11:00 AM CDT Office Visit [facility] [address] [place] [address] Lilli Matthews APRN-ENGINEERING INSPECTION ASSISTANT [address] [place] [address] 06/13/2026 11:30 AM CDT Clinical Support [facility] [address] [place] [address] Health Maintenance Due Date Last Done Comments HIV SCREENING 2005 HEPATITIS C SCREENING 04/13/2008 DTAP/TDAP/TD VACCINES (1 - Tdap) 2009 HEPATITIS B VACCINE (1 of 3 - 19+ 3-dose series) 2009 PNEUMOCOCCAL VACCINE (1 of 2 - PCV) 2009 HPV VACCINE (1 - 3-dose SCDM series) 2017 COVID-19 VACCINE ( - 2024-2 6 season) 2025 03/23/2022, 08/08/2021, [...] this topic Medical Devices Implanted Type Area Advanced Clinical Specialist Device Identifier Shelf Expiration Date Model / Serial / Lot Kit Tissue Clsr Duo Tssl 1 Prefl [facility] - [id number] Implanted:Qty : 1 on 06/08/2023 by Brenda Gamez MD at [facility] N/A: [facility] 03/11/2025 [id number] / [id number] / [id number] [place] [address] [place] [address] [facility] SELF PAY NO INSURANCE Member Subscriber Plan / Payer (Ef fective for All Dates) Name:Estrella Bass Member ID:Not on file Relation to Subscriber:Not on file Name:ESTRELLA BASS Subscriber ID:Not on file (Home) Address: [address] [place] [address] Payer ID:Not on file Group ID:Not on file Type:Self Pay Address: [place], [place] [facility] MEDICAID - [place] Advance Directives * Full Code (Latest Code Status on File) Date Activated Date Inactivated Comments 06/08/2023 10:42 AM 06/09/2023 3:38 PM Care Teams Mask Inspector Relationship Specialty Start Date End Date Kyler Orr MD [address] [place] [id number] PCP - General Internal Medicine 11/06/21
--- OUTSIDE RECORDS SUMMARY | 2025-08-24 10:41 | XMS_ITS | Clinical Summary ---
Author Organization [facility] Address [address] [place] [address] Care Team Providers Care Ferris Wheel Operator Name Role Phone Kyler Orr MD Primary Care Provider [phone] Allergies Active Allergy Reactions Criticality Noted Date [...] patient's age to complete this topic Insurance [facility] Care Teams Ferris Wheel Operator Relationship Specialty Start Date End Date Kyler Orr MD [address] [place] [id number] PCP - General Internal Medicine 05/02/24
--- OUTSIDE RECORDS SUMMARY | 2025-08-24 10:41 | XMS_ITS | Clinical Summary ---
Author Organization [facility] Address [address] [place], [place] [id number] Care Team Providers Care Instrument Engineer Name Role Phone Unavailable Primary Care Provider [...] patient's age to complete this topic Insurance [place] MEDICAID
[2025-08-24] MEDS: HYDROcodone/acetaminophen (*CRX) 5-325 MG TABLET 1 TAB PO (11:28)
[2025-08-24] MEDS: ACETAMINOPHEN 325 MG TABLET 650 MG PO (11:28)
[2025-08-24 12:48] VITALS: BP 101/65; PULSE 81; RESP 16; O2SAT 100
== END 2025-08-24 12:49 | disposition home or self-care (01) ==
PROVIDERS: Emergency Provider Physician Assistant; PCP Physician Assistant Medical
DX: M62.838 Other muscle spasm (principal); E04.1 Nontoxic single thyroid nodule
CPT/HCPCS: 72125; 96372; 99284; A9270; J1885; J3360